=== PATIENT | male | born 1980 | race Caucasian/White ===

== ENCOUNTER 2019-01-01 15:05 | Emergency (ER) | payer BC ==
[~2019-01-01] VITALS: Ht 165.1 cm; Wt 104.5 kg
[~2019-01-01 15:05] MED LIST: CYCL-1 PO
[2019-01-01 16:27] VITALS: BP 153/91
[2019-01-01] MEDS ORDERED: HYDR-4353 PO (18:11)
[2019-01-01] MEDS ORDERED: PENI500T2 PO (18:11)
== END 2019-01-01 18:18 | disposition home or self-care (01) ==
LOC: ER 15:06
DX: K08.89 Other specified disorders of teeth and supporting structures (principal)
CPT/HCPCS: 99283

== ENCOUNTER 2020-10-27 18:24 | Emergency (ER) | payer BC ==
[~2020-10-27] VITALS: Ht 167.6 cm; Wt 106.8 kg
[2020-10-27 19:18] LABS: BASOPHILS # (AUTO) 0.2 X10'3 (0-0.2); HEMOGLOBIN 15.8 g/dl (14.0-17.9); LYMPHOCYTES # (AUTO) 2.6 X10'3 (1.1-4.8)
[2020-10-27 19:20] LABS: BASOPHILS % (AUTO) 1.3 % (0-1); EOSINOPHILS # (AUTO) 0.3 X10'3 (0-0.9); EOSINOPHILS % (AUTO) 2.2 % (0-6); LYMPHOCYTES % (AUTO) 21.6 % (21-51); MEAN CORPUSCULAR HEMOGLOBIN 28.1 PG (27.0-31.0); MEAN CORPUSCULAR HGB CONC 33.6 g/dL (33.0-36.5); MEAN CORPUSCULAR VOLUME 83.6 FL (78-98); MEAN PLATELET VOLUME 9.6 FL (7.4-10.4); MONOCYTES # (AUTO) 1.1 X10'3 (0-0.9); MONOCYTES % (AUTO) 9.4 % (2-12); NEUTROPHILS # (AUTO) 7.8 X10'3 (1.8-7.7); NEUTROPHILS % (AUTO) 65.5 % (42-75); PLATELET COUNT 298 X10'3 (140-440); RED BLOOD COUNT 5.62 X10'6 (4.70-6.10); RED CELL DISTRIBUTION WIDTH 13.9 % (11.5-14.5); WHITE BLOOD COUNT 11.9 X10'3 (4.5-11.0)
[2020-10-27 19:42] LABS: ALANINE AMINOTRANSFERASE 54 U/L (12-78); ALBUMIN 3.9 G/DL (3.4-5.0); ALBUMIN/GLOBULIN RATIO 1.1 (1.1-1.5); ALKALINE PHOSPHATASE 110 IU/L (46-116); ANION GAP 11 (8-16); BILIRUBIN,TOTAL 0.3 MG/DL (0.1-1.0); BLOOD UREA NITROGEN 16 MG/DL (7-18); BUN/CREATININE RATIO 18.8 (5.4-32.0); CHLORIDE 106 MMOL/L (99-107); CREATININE 0.85 MG/DL (0.60-1.10); SODIUM 140 MMOL/L (135-145); TOTAL CARBON DIOXIDE 22.9 MMOL/L (24-32); TOTAL PROTEIN 7.5 G/DL (6.4-8.2); eGFR > 90 ML/MIN
[2020-10-27 19:44] LABS: ASPARTATE AMINO TRANSFERASE 22 U/L (10-37); GLUCOSE 140 MG/DL (70-104); POTASSIUM 4.1 MMOL/L (3.5-5.1)
[2020-10-27 23:08] VITALS: BP 114/78
== END 2020-10-27 23:28 | disposition home or self-care (01) ==
LOC: ER 18:25
DX: R07.89 Other chest pain (principal); F17.200 Nicotine dependence, unspecified, uncomplicated; F12.90 Cannabis use, unspecified, uncomplicated; Z72.89 Other problems related to lifestyle; Z79.899 Other long term (current) drug therapy
CPT/HCPCS: 36415; 71046; 80053; 83880; 84484; 85025; 93005; 99285